=== PATIENT | female | born 1985 | race Caucasian/White ===

== ENCOUNTER 2019-09-01 10:46 | Emergency (ER) | payer OTHER ==
--- NOTE | 2019-09-01 14:27 | EDM.PDOC ---
ED HPI GENERAL MEDICAL PROBLEM - General Chief Complaint: Skin Complaint Stated Complaint: BREAST PAIN Time Seen by Provider: 09/01/19 14:27 - History of Present Illness INITIAL COMMENTS - FREE TEXT/NARRATIVE: 34-year-old female presents the emergency room with left-sided breast pain. This is been going on for the last couple of days. The patient has had problems in this area in the past and is been told she has had a cyst here. The last time she was evaluated by a physician was about 4 years ago now it has become exquisitely tender and red overlying skin. She has never had problems like this in the past. She cannot recall ever having any images of this done in the past such as mammogram or ultrasound. Patient has not had any fevers or chills. Family history is significant for numerous people having gynecologic cancers. Breast cancer in her mother who had a bilateral mastectomy 7 years ago. Left Breast Pain Score (Numeric/FACES): 7 - Related Data Allergies Allergy/AdvReac Type Severity Reaction Status Date / Time No Known Allergies Allergy Verified 09/01/19 11:02 Home Meds: Home Meds Acetaminophen/HYDROcodone [[place] 325-5 MG] 1 - 2 tab PO Q6H PRN #20 tablet 09/01 [Rx] Past Medical History Musculoskeletal History: Reports: Back Pain, Chronic - Past Surgical History GI Surgical History: Reports: Cholecystectomy Female Surgical History: Reports: Tubal Ligation Social & Family History - Tobacco Use Smoking Status *Q: Current Every Day Smoker Years of Tobacco use: 7 Packs/Tins Daily: 0.5 - Caffeine Use Caffeine Use: Reports: Soda, Tea - Recreational Drug Use Recreational Drug Use: No ED ROS GENERAL - Review of Systems Review Of Systems: See Below Constitutional: Reports: No Symptoms Respiratory: Reports: No Symptoms Cardiovascular: Denies: Chest Pain Endocrine: Reports: No Symptoms GI/Abdominal: Reports: No Symptoms ED EXAM, SKIN/RASH Exam: See Below Exam Limited By: No Limitations General Appearance: Alert, No Apparent Distress Respiratory/Chest: No Respiratory Distress, Lungs Clear, Normal Breath Sounds Cardiovascular: Normal Peripheral Pulses, Regular Rate, Rhythm, No Edema Skin: Other (Patient of her left breast reveals a mass-effect that is about 3-1/ 2 cm x 1-1/2 cm ovoid in shape she has significant erythema over this and it is exquisitely tender with palpation. This is located at the 9 o'clock position perhaps 10 cm or so from the nipple) Course - Vital Signs Last Recorded V/S: Last Vital Signs Temp 36.8 C 09/01/19 11:00 Pulse 88 09/01/19 11:00 Resp 16 09/01/19 11:00 BP 151/87 H 09/01/19 11:00 Pulse Ox 98 09/01/19 11:00 - Orders/Labs/Meds Meds: Medications Discontinued Medications Generic Name Dose Route Start Last Admin Trade Name Freq PRN Reason Stop Dose Admin Hydrocodone Bitart/Acetaminophen 1 tab 09/01/19 18:22 [place] 325-5 Mg PO 09/01/19 18:23 ONETIME ONE Hydromorphone HCl 0.5 mg 09/01/19 14:38 09/01/19 14:50 Dilaudid IVPUSH 09/01/19 14:39 0.5 mg ONETIME ONE Administration - Re-Assessments/Exams Free Text/Narrative Re-Assessment/Exam: 09/01/19 14:[address] Adams, our on-call surgeon. We will check an ultrasound and Dr. Adams will come by and evaluate the patient as soon as he is done on the surgical case he is working on at this time. 09/01/19 17:30 Dr. Adams just arrived and is with the patient now ultrasound reveals 2 lesions in the 9 o'clock position consistent with exam these appear solid they could represent a fibroadenoma or an enlarged lymph node with an obscured echogenic center second lesion could inflammation noted with an echogenic center thought to represent a lymph node or other mass. 09/01/19 18:24 Dr. Adams is going to arrange an open resection and biopsy. This will be done tomorrow he requests that we start her on some pain medication. Departure - Departure Time of Disposition: 18:24 Disposition: Home, Self-Care 01 Clinical Impression: Left breast mass - Discharge Information Prescriptions: Acetaminophen/HYDROcodone [[place] 325-5 MG] 1 - 2 tab PO Q6H PRN #20 tablet PRN Reason: Pain Referrals: PCP,None [Primary Care Provider] - Forms: ED Department Discharge Additional Instructions: Return to the emergency room with any questions problems or worsening symptoms. Follow with up with Dr. Adams tomorrow as arranged. Nothing to eat or drink after midnight tonight. Use the pain medication as directed. Attempt to quit smoking Sepsis Event Note - Evaluation Sepsis Screening Result: No Definite Risk - Focused Exam Vital Signs: Vital Signs Temp Pulse Resp BP Pulse Ox 09/01/19 11:00 36.8 C 88 16 151/87 H 98 Date Exam was Performed: 09/01/19 Time Exam was Performed: 18:31
[2019-09-01] MEDS ORDERED: HYDROmorphone 0.5 MG/0.5 ML Syringe IVPUSH ONE (14:38)
--- NOTE | 2019-09-01 15:52 | US ---
Left breast ultrasound: Multiple real-time images were obtained of the left breast. Findings: Solid nodule having probable benign characteristics noted within the left breast at the 9:00 position 10 cm from the nipple measuring 2.8 cm x 1.3 cm. Smaller abnormality noted at 9:00 position 10 cm from the nipple measuring 3.4 cm x 0.8 cm. This shows a small echogenic center and could possibly represent a large lymph node. No fluid collections of abscess are seen. Impression: 1. 2 lesions at the 9:00 position 10 cm from the nipple which appears solid. One lesion could represent fibroadenoma or an enlarged lymph node with an obscured echogenic center. 2nd lesion has a slight echogenic center and could represent an enlarged lymph node on an inflammatory basis. 2. No abscess is seen. Follow-up study recommended in 6 months to evaluate for resolution or stability.
[2019-09-01] MEDS ORDERED: Acetaminophen/HYDROcodone 325-5 MG Tab PO ONE (18:22)
== END 2019-09-01 18:38 | disposition home or self-care (01) ==
LOC: JD.ED 10:46
DX: N63.20 Unspecified lump in the left breast, unspecified quadrant (principal); F17.210 Nicotine dependence, cigarettes, uncomplicated
CPT/HCPCS: 76642; 96374; 99284; A9270; J1170; 99283

== ENCOUNTER 2019-09-02 11:46 | Day surgery (SDC) | payer SELFPAY ==
--- NOTE | 2019-09-02 07:49 | PCM.HP.2 ---
H&P History of Present Illness - General Date of Service: 09/02/19 Admit Problem/Dx: left breast mass Source of Information: Patient History Limitations: Reports: No Limitations - History of Present Illness Initial Comments - Free Text/Narative: Ms. Sanders is a 34-year-old woman who presents with a left breast mass. The mass is been present for years, with no changes. On clinical exam, the patient was assured this was a benign lesion such as a fibroadenoma. However, this past Sunday night, the patient woke with acute left breast pain associated with mass. The mass became tender, with associated redness of the skin. She denies any history of trauma to the breast. She has no personal history of breast biopsy, or diagnostic breast imaging. Her family history is significant for breast and gynecologic cancer, her mother had a bilateral mastectomy 10 years ago, and is in remission. Her younger sister was diagnosed with gynecologic malignancy in her teens. She reports several maternal aunts, and maternal grandmother have had some form of either breast or gynecologic cancer. However, the patient has not had any genetic testing, nor is she aware of any family member undergoing genetic testing. She denies nipple discharge, and denies systemic symptoms such as fever or chills. Duration of Symptoms: Reports: Day(s): Location: Reports: Chest - Related Data Allergies/Adverse Reactions: Allergies Allergy/AdvReac Type Severity Reaction Status Date / Time No Known Allergies Allergy Verified 09/01/19 11:02 Home Medications: Home Meds Acetaminophen/HYDROcodone [[place] 325-5 MG] 1 - 2 tab PO Q6H PRN #20 tablet 09/01 [Rx] Past Medical History Musculoskeletal History: Reports: Back Pain, Chronic - Past Surgical History GI Surgical History: Reports: Cholecystectomy Female Surgical History: Reports: Tubal Ligation Social & Family History - Caffeine Use Caffeine Use: Reports: Soda, Tea H&P Review of Systems - Review of Systems: Review Of Systems: See Below General: Reports: No Symptoms HEENT: Reports: No Symptoms Pulmonary: Reports: No Symptoms Cardiovascular: Reports: No Symptoms Gastrointestinal: Reports: No Symptoms Genitourinary: Reports: No Symptoms Musculoskeletal: Reports: No Symptoms Skin: Reports: Erythema Psychiatric: Reports: No Symptoms Neurological: Reports: No Symptoms Hematologic/Lymphatic: Reports: No Symptoms Immunologic: Reports: No Symptoms Exam - Exam Exam: See Below - Exam General: Alert, Oriented HEENT: Conjunctiva Clear Neck: Supple Lungs: Clear to Auscultation Cardiovascular: Regular Rate GI/Abdominal Exam: Soft, Non-Tender (Female) Exam: Deferred Rectal (Female) Exam: Deferred Back Exam: Normal Inspection Extremities: Normal Inspection Skin: Other (The medial aspect of the left breast has a circumscribed, raised tender lesion. This measures roughly 3 x 3 cm. It feels solid, without fluctuance.) Neuro Extensive - Mental Status: Alert, Oriented x3 Neuro Extensive - Motor, Sensory, Reflexes: Normal Gait Psychiatric: Alert, Normal Affect *Q Meaningful Use (ADM) - VTE Risk Assess *Q Each Risk Factor Represents 1 Point: Minor Surgery Planned Total Score 1 Point Risk Factors: 1 Problem List Initiated/Reviewed/Updated: Yes Assessment/Plan Comment:: Worrisome lesion of the left breast, with acute change. Family history is worrisome for mutation associated with early onset breast cancer. Plan for excisional biopsy today. - Mortality Measure Prognosis:: Good
[~2019-09-02 11:46] MED LIST: Lactated Ringers 1,000 ML IV SCH; Lidocaine 1%/Sod Bicarbonate in NS 8.4% 1 ML Syringe IDERM PRN; Sodium Chloride 0.9% 10 ML Syringe FLUSH PRN
[2019-09-02] MEDS ORDERED: Lidocaine 1% 4 ML ONE (11:57)
[2019-09-02] MEDS ORDERED: fentaNYL 100 MCG/2 ML SDV ONE (11:57)
[2019-09-02] MEDS ORDERED: Propofol 200 MG/20 ML SDV ONE ×3 (11:57→13:23)
[2019-09-02] MEDS ORDERED: ceFAZolin 1 GM Vial ONE (11:58)
[2019-09-02] MEDS ORDERED: Midazolam 1 MG/ML 2 ML SDV ONE ×2 (11:58→13:27)
[2019-09-02] MEDS ORDERED: Bupivacaine 0.5%/EPINEPHrine 1:200,000 50 ML MDV ONE (12:01)
--- NOTE | 2019-09-02 12:12 | PCM.PREANE ---
Preanesthetic Assessment - Procedure Proposed Procedure: left excisional breast biopsy - Anesthesia/Transfusion/Family Hx Anesthesia History: Prior Anesthesia Without Reaction Family History of Anesthesia Reaction: No Transfusion History: Prior Transfusion Without Reaction - Review of Systems General: No Symptoms Pulmonary: No Symptoms Cardiovascular: Other (pain from breast) Gastrointestinal: No Symptoms Neurological: No Symptoms Other: Reports: None - Physical Assessment NPO Status Date: 09/02/19 NPO Status Time: 08:00 (water) Vital Signs: 115/80 77 97% 16 98.6 Height: 5 ft 6 in Weight: 83.5 kg ASA Class: 2 Mental Status: Alert & Oriented x3 Airway Class: Mallampati = 1 Dentition: Reports: Normal Dentition Thyro-Mental Finger Breadths: 3 Mouth Opening Finger Breadths: 3 ROM/Head Extension: Full Lungs: Clear to Auscultation, Normal Respiratory Effort Cardiovascular: Regular Rate, Regular Rhythm, No Murmurs - Allergies Allergies/Adverse Reactions: Allergies Allergy/AdvReac Type Severity Reaction Status Date / Time No Known Allergies Allergy Verified 09/01/19 11:02 - Blood Blood Available: No - Acknowledgements Anesthesia Type Planned: MAC Pt an Appropriate Candidate for the Planned Anesthesia: Yes Alternatives and Risks of Anesthesia Discussed w Pt/Guardian: Yes Pt/Guardian Understands and Agrees with Anesthesia Plan: Yes PreAnesthesia Questionnaire Cardiovascular History: Reports: None Respiratory History: Reports: None Gastrointestinal History: Reports: None Musculoskeletal History: Reports: Back Pain, Chronic - Past Surgical History GI Surgical History: Reports: Cholecystectomy Female Surgical History: Reports: Tubal Ligation - SUBSTANCE USE Smoking Status *Q: Current Every Day Smoker Tobacco Use Within Last Twelve Months: Cigarettes, Other (See Below) (marijuana also) Second Hand Smoke Exposure: Yes Days Per Week of Alcohol Use: 2 Number of Drinks Per Day: 2 Total Drinks Per Week: 4 Recreational Drug Use History: Yes Recreational Drug Type: Reports: Marijuana/Hashish - HOME MEDS Home Medications: Home Meds Acetaminophen/HYDROcodone [[place] 325-5 MG] 1 - 2 tab PO Q6H PRN #20 tablet 09/01 [Rx] - CURRENT (IN HOUSE) MEDS Current Meds: Current Medications Lactated Ringer's (Ringers, Lactated) 1,000 mls @ 125 mls/hr IV ASDIRECTED YUSEF Stop: 09/02/19 23:00 Lidocaine/Sodium Bicarbonate (Buffered Lidocaine 1% In Ns 8.4%) 0.25 ml IDERM ONETIME PRN PRN Reason: Prior to IV Start Stop: 09/02/19 18:00 Sodium Chloride (Saline Flush) 10 ml FLUSH ASDIRECTED PRN PRN Reason: Keep Vein Open Stop: 09/02/19 18:00 Discontinued Medications Bupivacaine HCl/Epinephrine Bitart (Marcaine 0.5%/Epinephrine 1:200,000) Confirm Administered Dose 50 ml .ROUTE .STK-MED ONE Stop: 09/02/19 12:02 Cefazolin Sodium (Ancef) Confirm Administered Dose 2 gm .ROUTE .STK-MED ONE Stop: 09/02/19 11:59 Fentanyl (Sublimaze) Confirm Administered Dose 100 mcg .ROUTE .STK-MED ONE Stop: 09/02/19 11:58 Lidocaine HCl (Xylocaine-Mpf 1%) Confirm Administered Dose 4 mls @ as directed .ROUTE .STK-MED ONE Stop: 09/02/19 11:58 Midazolam HCl (Versed 1 Mg/Ml) Confirm Administered Dose 2 mg .ROUTE .STK-MED ONE Stop: 09/02/19 11:59 Propofol (Diprivan 20 Ml) Confirm Administered Dose 200 mg .ROUTE .STK-MED ONE Stop: 09/02/19 11:58
[2019-09-02] MEDS ORDERED: fentaNYL 100 MCG/2 ML SDV IVPUSH PRN (13:19)
[2019-09-02] MEDS ORDERED: Ketorolac 15 MG/ML SDV ONE (13:43)
--- NOTE | 2019-09-02 13:49 | PCM48HPAN ---
Post Anesthesia Note - EVALUATION WITHIN 48HRS OF ANESTHETIC Vital Signs in Normal Range: Yes Patient Participated in Evaluation: Yes Respiratory Function Stable: Yes Airway Patent: Yes Cardiovascular Function Stable: Yes Hydration Status Stable: Yes Pain Control Satisfactory: Yes Nausea and Vomiting Control Satisfactory: Yes Mental Status Recovered: Yes (complains of pain- 8 of 10. patient rests quietly- speech slurred from sedat) Vital Signs: Last Vital Signs Temp 98.6 F 09/02/19 11:55 Pulse 77 09/02/19 11:55 Resp 16 09/02/19 11:55 BP 115/80 09/02/19 11:55 Pulse Ox 97 09/02/19 11:55
--- NOTE | 2019-09-02 13:51 | PCM.PRNOTE ---
- Free Text/Narrative Note: Date: 09/02/2019 Operation: Excisional biopsy of left breast mass Surgeon: Ramón Adams MD Findings: caseous material extruded from what appeared to be a simple cystic lesion. Overlying skin was biopsied, and breast mass was excised entirely, with orienting stitches placed (short=superior, long=lateral). Detailed Report: The patient was taken to the operating room and placed in supine position. Timeout was performed, and monitored anesthesia care was initiated. The left chest was prepped and draped in usual sterile fashion. A total of 20 cc 0.5% Marcaine with epinephrine was injected intradermally at the site of the lesion. An elliptical incision oriented longitudinally was made with a 15 blade scalpel, excising skin overlying the mass. This was sent as a separate specimen. Skin flaps were raised around the lesion, and during handling white caseous material began to extrude from what eventually was apparently a cystic capsule. The capsule was carefully excised in its entirety using a combination of monopolar energy and sharp dissection. The specimen was oriented with silk stitches, a short stitch placed superiorly and a long stitch placed laterally. The specimen was sent for pathology. The wound was irrigated thoroughly, and hemostasis appeared satisfactory. Interrupted deep dermal 3-0 Vicryl stitches were placed to bring the skin edges together. A running 4-0 Vicryl subcuticular stitch was then placed, and the wound was dressed with Dermabond. The patient tolerated the procedure well. Ramón Adams MD General Surgery
[2019-09-02] MEDS ORDERED: oxyCODONE 5 MG Tab PO STA (14:22)
== END 2019-09-02 14:40 | disposition home or self-care (01) ==
LOC: JD.SDS 11:46
PROVIDERS: ATTEND Surgery
DX: N60.82 Other benign mammary dysplasias of left breast (principal); F17.210 Nicotine dependence, cigarettes, uncomplicated
CPT/HCPCS: 19120; A9270; J0690; J1885; J2001; J2250; J2704; J3010; J3490; J7120; 00400

== ENCOUNTER 2019-09-14 22:37 | Emergency (ER) | payer SELFPAY | END 2019-09-14 23:36 | LOC: JD.ED 22:37 | DX: Z53.21 Procedure and treatment not carried out due to patient leaving prior to being seen by health care provider (principal) ==

== ENCOUNTER 2019-09-15 05:38 | Emergency (ER) | payer OTHER ==
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
[2019-09-15] MEDS ORDERED: Ondansetron 4 MG Tab.DIS PO ONE (07:01)
--- NOTE | 2019-09-15 07:39 | CT ---
CT facial bones Technique: Multiple axial sections through the facial bones were obtained. Reconstructed coronal and sagittal images were obtained. Findings: Mastoid sinuses are clear. Paranasal sinuses are also clear. Mild soft tissue swelling is seen within the right cheek. Right and left globes are symmetric. Extraocular muscles are symmetric. No retro-bulbar abnormalities are seen. No facial bone fracture is appreciated. Impression: 1. Soft tissue swelling within the right cheek. 2. No acute facial bone abnormality is appreciated. Diagnostic code #3 This report was dictated in [place] Standard Time
--- NOTE | 2019-09-15 08:29 | CR ---
Right hand: Four views of the right hand were obtained. Comparison: No prior hand exam. Joint spaces are preserved. No fracture, dislocation or other bony abnormality is seen. Impression: 1. No abnormality is appreciated on right hand exam. Diagnostic code #1 This report was dictated in [place] Standard Time
== END 2019-09-15 09:00 | disposition home or self-care (01) ==
LOC: JD.ED 05:38
DX: S00.83XA Contusion of other part of head, initial encounter (principal); S00.531A Contusion of lip, initial encounter; S60.021A Contusion of right index finger without damage to nail, initial encounter; S60.221A Contusion of right hand, initial encounter; F17.210 Nicotine dependence, cigarettes, uncomplicated; E11.9 Type 2 diabetes mellitus without complications; Z88.5 Allergy status to narcotic agent; Y04.0XXA Assault by unarmed brawl or fight, initial encounter
CPT/HCPCS: 70486; 73130; 99284; A9270; 99283